=== PATIENT | female | born 1970 | race Caucasian/White ===

== ENCOUNTER 2017-08-03 10:08 | Day surgery (SDC) | payer OTHER ==
[~2017-08-03 10:08] MED LIST: AMOX500 PO; ATEN25 PO; BUSP10 PO; Bactrim Ds Tab1 EACH PO; CEPH500 PO; Citalopram HBr40 MG PO; Cleocin HCl300 MG PO; DESV50 PO; FAMO40 PO; GABA300 PO; HYDACE5 PO; HYDCHL50; IBUP600 PO; LEVSOD50; METF500C PO; Norco 5-325 Ta1 EACH PO; OXYC5; Omeprazole20 M1 PO; SULTRIDS PO; VENL75ER PO; Vitamin D2000 UNIT PO; ZESTORETIC 20-1 EAC1 PO; [UNRECOGNIZED DRUG - OTHER]
== END 2017-08-03 23:29 | disposition home or self-care (01) ==
LOC: WOUND 10:08
DX: Z48.00 Encounter for change or removal of nonsurgical wound dressing (principal); T81.31XA Disruption of external operation (surgical) wound, not elsewhere classified, initial encounter; K42.0 Umbilical hernia with obstruction, without gangrene; E66.01 Morbid (severe) obesity due to excess calories; Z87.891 Personal history of nicotine dependence
CPT/HCPCS: G0463

== ENCOUNTER 2017-08-31 10:13 | Day surgery (SDC) | payer OTHER | END 2017-08-31 11:53 | disposition home or self-care (01) | LOC: WOUND 10:13 | DX: Z48.00 Encounter for change or removal of nonsurgical wound dressing (principal); T81.31XA Disruption of external operation (surgical) wound, not elsewhere classified, initial encounter; E66.01 Morbid (severe) obesity due to excess calories; K42.0 Umbilical hernia with obstruction, without gangrene | CPT/HCPCS: G0463 ==

== ENCOUNTER 2017-09-07 10:20 | Day surgery (SDC) | payer OTHER | END 2017-09-07 11:56 | disposition home or self-care (01) | LOC: WOUND 10:20 | PROC: 0HB7XZZ Excision of Abdomen Skin, External Approach (ICD-10-PCS; principal; 2017-09-07) | DX: Z48.00 Encounter for change or removal of nonsurgical wound dressing (principal); T81.31XA Disruption of external operation (surgical) wound, not elsewhere classified, initial encounter; K42.0 Umbilical hernia with obstruction, without gangrene; E66.01 Morbid (severe) obesity due to excess calories; L57.0 Actinic keratosis; Z87.891 Personal history of nicotine dependence | CPT/HCPCS: G0463 ==

== ENCOUNTER 2017-09-14 10:20 | Day surgery (SDC) | payer OTHER | END 2017-09-14 11:04 | disposition home or self-care (01) | LOC: WOUND 10:20 | DX: Z48.00 Encounter for change or removal of nonsurgical wound dressing (principal); T81.31XA Disruption of external operation (surgical) wound, not elsewhere classified, initial encounter; K42.0 Umbilical hernia with obstruction, without gangrene; E66.01 Morbid (severe) obesity due to excess calories | CPT/HCPCS: G0463 ==

== ENCOUNTER 2017-09-22 14:00 | Day surgery (SDC) | payer OTHER | END 2017-09-22 16:15 | disposition home or self-care (01) | LOC: WOUND 14:00 | PROC: 2W03X6Z Change Pressure Dressing on Abdominal Wall (ICD-10-PCS; principal; 2017-09-22) | DX: Z48.00 Encounter for change or removal of nonsurgical wound dressing (principal); T81.31XA Disruption of external operation (surgical) wound, not elsewhere classified, initial encounter; E11.622 Type 2 diabetes mellitus with other skin ulcer; L98.492 Non-pressure chronic ulcer of skin of other sites with fat layer exposed; K42.0 Umbilical hernia with obstruction, without gangrene; E66.01 Morbid (severe) obesity due to excess calories | CPT/HCPCS: G0463 ==

== ENCOUNTER 2017-09-26 00:04 | Day surgery (SDC) | payer OTHER | END 2017-09-26 13:11 | disposition home or self-care (01) | LOC: WOUND 00:04 | DX: Z48.00 Encounter for change or removal of nonsurgical wound dressing (principal); T81.31XA Disruption of external operation (surgical) wound, not elsewhere classified, initial encounter; E66.01 Morbid (severe) obesity due to excess calories; K42.0 Umbilical hernia with obstruction, without gangrene | CPT/HCPCS: 87070; 87075; 87076; 87185; 87205; G0463 ==

== ENCOUNTER 2017-09-27 12:49 | Day surgery (SDC) | payer OTHER | END 2017-09-27 14:22 | disposition home or self-care (01) | LOC: WOUND 12:49 | DX: Z48.00 Encounter for change or removal of nonsurgical wound dressing (principal); T81.31XA Disruption of external operation (surgical) wound, not elsewhere classified, initial encounter; E66.01 Morbid (severe) obesity due to excess calories; K42.0 Umbilical hernia with obstruction, without gangrene | CPT/HCPCS: G0463 ==

== ENCOUNTER 2017-09-29 13:47 | Day surgery (SDC) | payer OTHER | END 2017-09-29 15:57 | disposition home or self-care (01) | LOC: WOUND 13:47 | PROC: 2W13X6Z Compression of Abdominal Wall using Pressure Dressing (ICD-10-PCS; principal; 2017-09-29) | DX: Z48.00 Encounter for change or removal of nonsurgical wound dressing (principal); T81.31XA Disruption of external operation (surgical) wound, not elsewhere classified, initial encounter; E66.01 Morbid (severe) obesity due to excess calories; K42.0 Umbilical hernia with obstruction, without gangrene | CPT/HCPCS: G0463 ==

== ENCOUNTER 2017-10-03 00:05 | Day surgery (SDC) | payer OTHER | END 2017-10-03 14:26 | disposition home or self-care (01) | LOC: WOUND 00:05 | PROC: 2W13X6Z Compression of Abdominal Wall using Pressure Dressing (ICD-10-PCS; principal; 2017-10-03) | DX: Z48.00 Encounter for change or removal of nonsurgical wound dressing (principal); T81.31XA Disruption of external operation (surgical) wound, not elsewhere classified, initial encounter; E66.01 Morbid (severe) obesity due to excess calories; K42.0 Umbilical hernia with obstruction, without gangrene ==

== ENCOUNTER 2017-10-06 00:57 | Day surgery (SDC) | payer OTHER | END 2017-10-06 22:54 | disposition home or self-care (01) | LOC: WOUND 00:57 | DX: Z48.00 Encounter for change or removal of nonsurgical wound dressing (principal); T81.31XA Disruption of external operation (surgical) wound, not elsewhere classified, initial encounter; E66.01 Morbid (severe) obesity due to excess calories; K42.0 Umbilical hernia with obstruction, without gangrene | CPT/HCPCS: G0463 ==

== ENCOUNTER 2017-10-10 00:24 | Day surgery (SDC) | payer OTHER | END 2017-10-10 22:58 | disposition home or self-care (01) | LOC: WOUND 00:24 | PROC: 2W13X6Z Compression of Abdominal Wall using Pressure Dressing (ICD-10-PCS; principal; 2017-10-10) | DX: Z48.00 Encounter for change or removal of nonsurgical wound dressing (principal); T81.31XA Disruption of external operation (surgical) wound, not elsewhere classified, initial encounter; E66.01 Morbid (severe) obesity due to excess calories; K42.0 Umbilical hernia with obstruction, without gangrene ==

== ENCOUNTER 2017-10-12 00:09 | Day surgery (SDC) | payer OTHER | END 2017-10-12 13:01 | disposition home or self-care (01) | LOC: WOUND 00:09 | DX: Z48.00 Encounter for change or removal of nonsurgical wound dressing (principal); T81.31XA Disruption of external operation (surgical) wound, not elsewhere classified, initial encounter; E66.01 Morbid (severe) obesity due to excess calories; K42.0 Umbilical hernia with obstruction, without gangrene ==

== ENCOUNTER 2017-10-14 12:27 | Day surgery (SDC) | payer OTHER | END 2017-10-14 16:00 | disposition home or self-care (01) | LOC: WOUND 12:27 | PROC: 2W13X6Z Compression of Abdominal Wall using Pressure Dressing (ICD-10-PCS; principal; 2017-10-14) | DX: Z48.00 Encounter for change or removal of nonsurgical wound dressing (principal); T81.31XA Disruption of external operation (surgical) wound, not elsewhere classified, initial encounter; E66.01 Morbid (severe) obesity due to excess calories; K42.0 Umbilical hernia with obstruction, without gangrene; Z87.891 Personal history of nicotine dependence ==

== ENCOUNTER 2017-10-17 00:19 | Day surgery (SDC) | payer OTHER | END 2017-10-17 14:34 | disposition home or self-care (01) | LOC: WOUND 00:19 | PROC: 2W13X6Z Compression of Abdominal Wall using Pressure Dressing (ICD-10-PCS; principal; 2017-10-17) | DX: Z48.01 Encounter for change or removal of surgical wound dressing (principal); T81.31XA Disruption of external operation (surgical) wound, not elsewhere classified, initial encounter; E66.01 Morbid (severe) obesity due to excess calories; K42.0 Umbilical hernia with obstruction, without gangrene ==

== ENCOUNTER 2017-10-19 12:36 | Day surgery (SDC) | payer OTHER | END 2017-10-19 13:40 | disposition home or self-care (01) | LOC: WOUND 12:36 | PROC: 2W13X6Z Compression of Abdominal Wall using Pressure Dressing (ICD-10-PCS; principal; 2017-10-19) | DX: Z48.01 Encounter for change or removal of surgical wound dressing (principal); E66.01 Morbid (severe) obesity due to excess calories; K42.0 Umbilical hernia with obstruction, without gangrene ==

== ENCOUNTER 2017-10-21 00:38 | Day surgery (SDC) | payer OTHER ==
[~2017-10-21 00:38] MED LIST changes: +LISHYD1012 PO; -ZESTORETIC 20-1 EAC1 PO
== END 2017-10-21 22:00 | disposition home or self-care (01) ==
LOC: WOUND 00:38
DX: Z48.01 Encounter for change or removal of surgical wound dressing (principal); T81.31XA Disruption of external operation (surgical) wound, not elsewhere classified, initial encounter; E66.01 Morbid (severe) obesity due to excess calories; K42.0 Umbilical hernia with obstruction, without gangrene
CPT/HCPCS: G0463

== ENCOUNTER 2017-10-24 00:06 | Day surgery (SDC) | payer OTHER ==
[~2017-10-24 00:06] MED LIST changes: -LISHYD1012 PO; +ZESTORETIC 20-1 EAC1 PO
== END 2017-10-24 13:59 | disposition home or self-care (01) ==
LOC: WOUND 00:06
PROC: 2W13X6Z Compression of Abdominal Wall using Pressure Dressing (ICD-10-PCS; principal; 2017-10-24)
PROC: 0HB7XZZ Excision of Abdomen Skin, External Approach (ICD-10-PCS; principal; 2017-10-24)
DX: Z48.01 Encounter for change or removal of surgical wound dressing (principal); T81.31XA Disruption of external operation (surgical) wound, not elsewhere classified, initial encounter; E66.01 Morbid (severe) obesity due to excess calories; K42.0 Umbilical hernia with obstruction, without gangrene
CPT/HCPCS: G0463

== ENCOUNTER 2017-10-26 00:14 | Day surgery (SDC) | payer OTHER | END 2017-10-26 22:57 | disposition home or self-care (01) | LOC: WOUND 00:14 | PROC: 2W13X6Z Compression of Abdominal Wall using Pressure Dressing (ICD-10-PCS; principal; 2017-10-26) | DX: Z48.01 Encounter for change or removal of surgical wound dressing (principal); T81.31XA Disruption of external operation (surgical) wound, not elsewhere classified, initial encounter; E66.01 Morbid (severe) obesity due to excess calories; K42.0 Umbilical hernia with obstruction, without gangrene ==

== ENCOUNTER 2017-10-28 00:47 | Day surgery (SDC) | payer OTHER | END 2017-10-28 23:28 | disposition home or self-care (01) | LOC: WOUND 00:47 | PROC: 2W13X6Z Compression of Abdominal Wall using Pressure Dressing (ICD-10-PCS; principal; 2017-10-28) | DX: Z48.01 Encounter for change or removal of surgical wound dressing (principal); T81.31XA Disruption of external operation (surgical) wound, not elsewhere classified, initial encounter; E66.01 Morbid (severe) obesity due to excess calories; K42.0 Umbilical hernia with obstruction, without gangrene ==

== ENCOUNTER 2017-10-31 00:18 | Day surgery (SDC) | payer OTHER | END 2017-10-31 13:16 | disposition home or self-care (01) | LOC: WOUND 00:18 | PROC: 2W13X6Z Compression of Abdominal Wall using Pressure Dressing (ICD-10-PCS; principal; 2017-10-31) | DX: T81.31XA Disruption of external operation (surgical) wound, not elsewhere classified, initial encounter (principal); E66.01 Morbid (severe) obesity due to excess calories; K42.0 Umbilical hernia with obstruction, without gangrene | CPT/HCPCS: G0463 ==

== ENCOUNTER 2017-11-02 09:25 | Day surgery (SDC) | payer OTHER | END 2017-11-02 22:39 | disposition home or self-care (01) | LOC: WOUND 09:25 | PROC: 2W13X6Z Compression of Abdominal Wall using Pressure Dressing (ICD-10-PCS; principal; 2017-11-02) | DX: T81.31XA Disruption of external operation (surgical) wound, not elsewhere classified, initial encounter (principal); E66.01 Morbid (severe) obesity due to excess calories; K42.0 Umbilical hernia with obstruction, without gangrene ==

== ENCOUNTER 2017-11-04 00:10 | Day surgery (SDC) | payer OTHER | END 2017-11-04 23:10 | disposition home or self-care (01) | LOC: WOUND 00:10 | PROC: 2W13X6Z Compression of Abdominal Wall using Pressure Dressing (ICD-10-PCS; principal; 2017-11-04) | DX: T81.31XA Disruption of external operation (surgical) wound, not elsewhere classified, initial encounter (principal); E66.01 Morbid (severe) obesity due to excess calories; K42.0 Umbilical hernia with obstruction, without gangrene; Z87.891 Personal history of nicotine dependence ==

== ENCOUNTER 2017-11-07 12:33 | Day surgery (SDC) | payer OTHER | END 2017-11-07 23:00 | disposition home or self-care (01) | LOC: WOUND 12:33 | PROC: 0HB7XZZ Excision of Abdomen Skin, External Approach (ICD-10-PCS; principal; 2017-11-07) | DX: T81.31XA Disruption of external operation (surgical) wound, not elsewhere classified, initial encounter (principal); E66.01 Morbid (severe) obesity due to excess calories; K42.0 Umbilical hernia with obstruction, without gangrene | CPT/HCPCS: G0463 ==

== ENCOUNTER 2017-11-09 00:12 | Day surgery (SDC) | payer OTHER | END 2017-11-09 22:57 | disposition home or self-care (01) | LOC: WOUND 00:12 | PROC: 2W13X6Z Compression of Abdominal Wall using Pressure Dressing (ICD-10-PCS; principal; 2017-11-09) | DX: T81.31XA Disruption of external operation (surgical) wound, not elsewhere classified, initial encounter (principal); E66.01 Morbid (severe) obesity due to excess calories; K42.0 Umbilical hernia with obstruction, without gangrene ==

== ENCOUNTER 2017-11-11 12:30 | Day surgery (SDC) | payer OTHER | END 2017-11-11 23:00 | disposition home or self-care (01) | LOC: WOUND 12:30 | PROC: 2W13X6Z Compression of Abdominal Wall using Pressure Dressing (ICD-10-PCS; principal; 2017-11-11) | DX: T81.31XA Disruption of external operation (surgical) wound, not elsewhere classified, initial encounter (principal); E66.01 Morbid (severe) obesity due to excess calories; K42.0 Umbilical hernia with obstruction, without gangrene ==

== ENCOUNTER 2017-11-14 13:34 | Day surgery (SDC) | payer OTHER | END 2017-11-14 23:28 | disposition home or self-care (01) | LOC: WOUND 13:34 | PROC: 0HB7XZZ Excision of Abdomen Skin, External Approach (ICD-10-PCS; principal; 2017-11-14) | DX: Z48.01 Encounter for change or removal of surgical wound dressing (principal); T81.31XA Disruption of external operation (surgical) wound, not elsewhere classified, initial encounter; E66.01 Morbid (severe) obesity due to excess calories; K43.2 Incisional hernia without obstruction or gangrene; Z87.891 Personal history of nicotine dependence | CPT/HCPCS: G0463 ==

== ENCOUNTER 2017-11-16 12:08 | Day surgery (SDC) | payer OTHER | END 2017-11-16 16:50 | disposition home or self-care (01) | LOC: WOUND 12:08 | PROC: 2W13X6Z Compression of Abdominal Wall using Pressure Dressing (ICD-10-PCS; principal; 2017-11-16) | DX: T81.31XA Disruption of external operation (surgical) wound, not elsewhere classified, initial encounter (principal); E66.01 Morbid (severe) obesity due to excess calories; K42.0 Umbilical hernia with obstruction, without gangrene ==

== ENCOUNTER 2017-11-18 12:14 | Day surgery (SDC) | payer OTHER | END 2017-11-18 16:59 | disposition home or self-care (01) | LOC: WOUND 12:14 | PROC: 2W13X6Z Compression of Abdominal Wall using Pressure Dressing (ICD-10-PCS; principal; 2017-11-18) | DX: T81.31XA Disruption of external operation (surgical) wound, not elsewhere classified, initial encounter (principal); E66.01 Morbid (severe) obesity due to excess calories; K42.0 Umbilical hernia with obstruction, without gangrene ==

== ENCOUNTER 2017-11-21 14:08 | Day surgery (SDC) | payer OTHER | END 2017-11-21 16:54 | disposition home or self-care (01) | LOC: WOUND 14:08 | PROC: 0HB7XZZ Excision of Abdomen Skin, External Approach (ICD-10-PCS; principal; 2017-11-21) | DX: T81.31XA Disruption of external operation (surgical) wound, not elsewhere classified, initial encounter (principal); E66.01 Morbid (severe) obesity due to excess calories; K42.0 Umbilical hernia with obstruction, without gangrene ==

== ENCOUNTER 2017-11-25 00:25 | Day surgery (SDC) | payer OTHER | END 2017-11-25 15:58 | disposition home or self-care (01) | LOC: WOUND 00:25 | PROC: 2W03X6Z Change Pressure Dressing on Abdominal Wall (ICD-10-PCS; principal; 2017-11-25) | DX: Z48.01 Encounter for change or removal of surgical wound dressing (principal); T81.31XA Disruption of external operation (surgical) wound, not elsewhere classified, initial encounter; K43.9 Ventral hernia without obstruction or gangrene; E66.01 Morbid (severe) obesity due to excess calories; Z87.891 Personal history of nicotine dependence ==

== ENCOUNTER 2017-11-28 10:12 | Day surgery (SDC) | payer OTHER | END 2017-11-28 23:09 | disposition home or self-care (01) | LOC: WOUND 10:12 | PROC: 2W03X6Z Change Pressure Dressing on Abdominal Wall (ICD-10-PCS; principal; 2017-11-28) | DX: Z48.01 Encounter for change or removal of surgical wound dressing (principal); T81.31XA Disruption of external operation (surgical) wound, not elsewhere classified, initial encounter; K43.9 Ventral hernia without obstruction or gangrene; E66.01 Morbid (severe) obesity due to excess calories ==

== ENCOUNTER 2017-12-01 00:49 | Day surgery (SDC) | payer OTHER ==
[~2017-12-01 00:49] MED LIST changes: +LISHYD1012 PO; -ZESTORETIC 20-1 EAC1 PO
== END 2017-12-01 22:58 | disposition home or self-care (01) ==
LOC: WOUND 00:49
PROC: 0HB7XZZ Excision of Abdomen Skin, External Approach (ICD-10-PCS; principal; 2017-12-01)
DX: T81.31XA Disruption of external operation (surgical) wound, not elsewhere classified, initial encounter (principal); E66.01 Morbid (severe) obesity due to excess calories; K42.0 Umbilical hernia with obstruction, without gangrene
CPT/HCPCS: G0463

== ENCOUNTER 2017-12-06 15:00 | Day surgery (SDC) | payer OTHER | END 2017-12-06 22:50 | disposition home or self-care (01) | LOC: WOUND 15:00 | PROC: 2W13X6Z Compression of Abdominal Wall using Pressure Dressing (ICD-10-PCS; principal; 2017-12-06) | DX: T81.31XA Disruption of external operation (surgical) wound, not elsewhere classified, initial encounter (principal); E66.01 Morbid (severe) obesity due to excess calories; K42.0 Umbilical hernia with obstruction, without gangrene ==

== ENCOUNTER 2017-12-09 10:43 | Day surgery (SDC) | payer OTHER | END 2017-12-09 12:29 | disposition home or self-care (01) | LOC: WOUND 10:43 | PROC: 2W13X6Z Compression of Abdominal Wall using Pressure Dressing (ICD-10-PCS; principal; 2017-12-09) | DX: Z48.01 Encounter for change or removal of surgical wound dressing (principal); T81.31XA Disruption of external operation (surgical) wound, not elsewhere classified, initial encounter; E66.01 Morbid (severe) obesity due to excess calories; K42.0 Umbilical hernia with obstruction, without gangrene ==

== ENCOUNTER 2017-12-12 14:00 | Day surgery (SDC) | payer OTHER | END 2017-12-12 16:29 | disposition home or self-care (01) | LOC: WOUND 14:00 | PROC: 0HB7XZZ Excision of Abdomen Skin, External Approach (ICD-10-PCS; principal; 2017-12-12) | DX: T81.31XA Disruption of external operation (surgical) wound, not elsewhere classified, initial encounter (principal); E66.01 Morbid (severe) obesity due to excess calories; K42.0 Umbilical hernia with obstruction, without gangrene ==

== ENCOUNTER 2017-12-15 09:16 | Day surgery (SDC) | payer OTHER | END 2017-12-15 22:46 | disposition home or self-care (01) | LOC: WOUND 09:16 | PROC: 2W13X6Z Compression of Abdominal Wall using Pressure Dressing (ICD-10-PCS; principal; 2017-12-15) | DX: T81.31XA Disruption of external operation (surgical) wound, not elsewhere classified, initial encounter (principal); E66.01 Morbid (severe) obesity due to excess calories; K42.0 Umbilical hernia with obstruction, without gangrene ==

== ENCOUNTER 2017-12-22 00:17 | Day surgery (SDC) | payer OTHER | END 2017-12-22 22:48 | disposition home or self-care (01) | LOC: WOUND 00:17 | PROC: 2W13X6Z Compression of Abdominal Wall using Pressure Dressing (ICD-10-PCS; principal; 2017-12-22) | DX: T81.31XA Disruption of external operation (surgical) wound, not elsewhere classified, initial encounter (principal); E66.01 Morbid (severe) obesity due to excess calories; K42.0 Umbilical hernia with obstruction, without gangrene ==

== ENCOUNTER 2017-12-26 14:59 | Day surgery (SDC) | payer OTHER | END 2017-12-26 23:21 | disposition home or self-care (01) | LOC: WOUND 14:59 | PROC: 2W13X6Z Compression of Abdominal Wall using Pressure Dressing (ICD-10-PCS; principal; 2017-12-26) | PROC: 0HB7XZZ Excision of Abdomen Skin, External Approach (ICD-10-PCS; principal; 2017-12-26) | DX: T81.31XA Disruption of external operation (surgical) wound, not elsewhere classified, initial encounter (principal); E66.01 Morbid (severe) obesity due to excess calories; K42.0 Umbilical hernia with obstruction, without gangrene ==

== ENCOUNTER 2017-12-29 10:49 | Day surgery (SDC) | payer OTHER | END 2017-12-29 15:46 | disposition home or self-care (01) | LOC: WOUND 10:49 | PROC: 2W13X6Z Compression of Abdominal Wall using Pressure Dressing (ICD-10-PCS; principal; 2017-12-29) | DX: T81.31XA Disruption of external operation (surgical) wound, not elsewhere classified, initial encounter (principal); E66.01 Morbid (severe) obesity due to excess calories; K42.0 Umbilical hernia with obstruction, without gangrene ==

== ENCOUNTER 2018-01-02 14:43 | Day surgery (SDC) | payer OTHER | END 2018-01-02 16:17 | disposition home or self-care (01) | LOC: WOUND 14:43 | PROC: 0HB7XZZ Excision of Abdomen Skin, External Approach (ICD-10-PCS; principal; 2018-01-02) | DX: T81.31XA Disruption of external operation (surgical) wound, not elsewhere classified, initial encounter (principal); E66.01 Morbid (severe) obesity due to excess calories; K42.0 Umbilical hernia with obstruction, without gangrene ==

== ENCOUNTER 2018-01-09 14:28 | Day surgery (SDC) | payer OTHER ==
[~2018-01-09 14:28] MED LIST changes: -LISHYD1012 PO; +ZESTORETIC 20-1 EAC1 PO
== END 2018-01-09 22:49 | disposition home or self-care (01) ==
LOC: WOUND 14:28
PROC: 0HB7XZZ Excision of Abdomen Skin, External Approach (ICD-10-PCS; principal; 2018-01-09)
DX: T81.31XA Disruption of external operation (surgical) wound, not elsewhere classified, initial encounter (principal); E66.01 Morbid (severe) obesity due to excess calories; K42.0 Umbilical hernia with obstruction, without gangrene

== ENCOUNTER 2018-01-11 00:45 | Day surgery (SDC) | payer OTHER ==
[2018-01-11] MEDS ORDERED: IBUP600 PO (14:24)
== END 2018-01-11 14:06 | disposition home or self-care (01) ==
LOC: ATC 00:45
DX: Z48.01 Encounter for change or removal of surgical wound dressing (principal); T81.31XA Disruption of external operation (surgical) wound, not elsewhere classified, initial encounter; E66.01 Morbid (severe) obesity due to excess calories; K42.0 Umbilical hernia with obstruction, without gangrene; E66.9 Obesity, unspecified; Z87.891 Personal history of nicotine dependence
CPT/HCPCS: 99213

== ENCOUNTER 2018-01-13 02:13 | Day surgery (SDC) | payer OTHER | END 2018-01-13 14:04 | disposition home or self-care (01) | LOC: ATC 02:13 | DX: T81.31XA Disruption of external operation (surgical) wound, not elsewhere classified, initial encounter (principal); E66.01 Morbid (severe) obesity due to excess calories; K42.0 Umbilical hernia with obstruction, without gangrene | CPT/HCPCS: 99211 ==

== ENCOUNTER 2018-01-16 09:23 | Day surgery (SDC) | payer OTHER | END 2018-01-16 23:00 | disposition home or self-care (01) | LOC: WOUND 09:23 | PROC: 0HB7XZZ Excision of Abdomen Skin, External Approach (ICD-10-PCS; principal; 2018-01-16) | DX: T81.31XA Disruption of external operation (surgical) wound, not elsewhere classified, initial encounter (principal); E66.01 Morbid (severe) obesity due to excess calories; K42.0 Umbilical hernia with obstruction, without gangrene ==

== ENCOUNTER 2018-01-18 00:02 | Day surgery (SDC) | payer OTHER | END 2018-01-18 15:13 | disposition home or self-care (01) | LOC: ATC 00:02 | PROC: 0HB7XZZ Excision of Abdomen Skin, External Approach (ICD-10-PCS; principal; 2018-01-18) | DX: T81.4XXA Infection following a procedure, initial encounter (principal); T81.31XA Disruption of external operation (surgical) wound, not elsewhere classified, initial encounter; E66.01 Morbid (severe) obesity due to excess calories; K42.0 Umbilical hernia with obstruction, without gangrene; L02.211 Cutaneous abscess of abdominal wall | CPT/HCPCS: 99212 ==

== ENCOUNTER 2018-01-20 00:13 | Day surgery (SDC) | payer OTHER | END 2018-01-20 13:50 | disposition home or self-care (01) | LOC: ATC 00:13 | DX: T81.31XA Disruption of external operation (surgical) wound, not elsewhere classified, initial encounter (principal); L02.211 Cutaneous abscess of abdominal wall; E66.01 Morbid (severe) obesity due to excess calories; K42.0 Umbilical hernia with obstruction, without gangrene | CPT/HCPCS: 99211 ==

== ENCOUNTER 2018-01-23 15:00 | Day surgery (SDC) | payer OTHER | END 2018-01-23 22:39 | disposition home or self-care (01) | LOC: WOUND 15:00 | PROC: 2W13X6Z Compression of Abdominal Wall using Pressure Dressing (ICD-10-PCS; principal; 2018-01-23) | DX: T81.31XA Disruption of external operation (surgical) wound, not elsewhere classified, initial encounter (principal); E66.01 Morbid (severe) obesity due to excess calories; K42.0 Umbilical hernia with obstruction, without gangrene ==

== ENCOUNTER 2018-01-25 00:33 | Day surgery (SDC) | payer OTHER | END 2018-01-25 15:15 | disposition home or self-care (01) | LOC: ATC 00:33 | DX: T81.31XA Disruption of external operation (surgical) wound, not elsewhere classified, initial encounter (principal); E66.01 Morbid (severe) obesity due to excess calories; K42.0 Umbilical hernia with obstruction, without gangrene | CPT/HCPCS: 99211 ==

== ENCOUNTER 2018-01-27 00:13 | Day surgery (SDC) | payer OTHER | END 2018-01-27 15:10 | disposition home or self-care (01) | LOC: ATC 00:13 | DX: T81.31XA Disruption of external operation (surgical) wound, not elsewhere classified, initial encounter (principal); E66.01 Morbid (severe) obesity due to excess calories; K42.0 Umbilical hernia with obstruction, without gangrene | CPT/HCPCS: 99212 ==

== ENCOUNTER 2018-01-30 00:08 | Day surgery (SDC) | END 2018-01-30 22:38 | disposition home or self-care (01) ==

== ENCOUNTER 2018-02-01 00:07 | Day surgery (SDC) | payer OTHER | END 2018-02-01 13:45 | disposition home or self-care (01) | LOC: ATC 00:07 | DX: T81.31XA Disruption of external operation (surgical) wound, not elsewhere classified, initial encounter (principal); L02.211 Cutaneous abscess of abdominal wall; E66.01 Morbid (severe) obesity due to excess calories; K42.0 Umbilical hernia with obstruction, without gangrene | CPT/HCPCS: 99211 ==

== ENCOUNTER 2018-02-06 15:00 | Day surgery (SDC) | payer OTHER | END 2018-02-06 16:39 | disposition home or self-care (01) | LOC: WOUND | DX: Z48.01 Encounter for change or removal of surgical wound dressing (principal); T81.31XA Disruption of external operation (surgical) wound, not elsewhere classified, initial encounter; E66.01 Morbid (severe) obesity due to excess calories; K42.0 Umbilical hernia with obstruction, without gangrene | CPT/HCPCS: G0463 ==

== ENCOUNTER 2018-02-16 13:15 | Day surgery (SDC) | payer OTHER | END 2018-02-16 15:47 | disposition home or self-care (01) | LOC: WOUND 13:15 | PROC: 0HB7XZZ Excision of Abdomen Skin, External Approach (ICD-10-PCS; principal; 2018-02-16) | DX: T81.31XA Disruption of external operation (surgical) wound, not elsewhere classified, initial encounter (principal); E66.01 Morbid (severe) obesity due to excess calories; K42.0 Umbilical hernia with obstruction, without gangrene | CPT/HCPCS: G0463 ==

== ENCOUNTER 2018-02-24 13:15 | Day surgery (SDC) | payer OTHER | END 2018-02-24 15:18 | disposition home or self-care (01) | LOC: WOUND 13:15 | DX: Z48.01 Encounter for change or removal of surgical wound dressing (principal); T81.31XA Disruption of external operation (surgical) wound, not elsewhere classified, initial encounter; E66.01 Morbid (severe) obesity due to excess calories; K42.0 Umbilical hernia with obstruction, without gangrene | CPT/HCPCS: G0463 ==

== ENCOUNTER 2018-03-10 08:48 | Day surgery (SDC) | payer OTHER | END 2018-03-10 09:28 | disposition home or self-care (01) | LOC: WOUND 08:48 | DX: Z48.01 Encounter for change or removal of surgical wound dressing (principal); T81.31XA Disruption of external operation (surgical) wound, not elsewhere classified, initial encounter; E66.01 Morbid (severe) obesity due to excess calories; K42.0 Umbilical hernia with obstruction, without gangrene | CPT/HCPCS: G0463 ==

== ENCOUNTER → 2023-09-08 | Outpatient (CLI) | payer OTHER ==
[2023-09-08 14:27] LABS: BASOPHILS ABSOLUTE AUTO 0.05 K/mm3 (0.00-0.23); BASOPHILS PERCENT AUTO 1 % (0-2); EOSINOPHILS PERCENT AUTO 2 % (0-6); Hematocrit 44.8 % (33.0-51.0); Hemoglobin 15.3 g/dL (11.5-16.0); IMMATURE GRAN ABSOLUTE AUTO 0.04 K/mm3 (0.00-0.10); IMMATURE GRAN PERCENT AUTO 0 % (0-1); LYMPHOCYTES ABSOLUTE AUTO 3.68 K/mm3 (0.84-5.20); LYMPHOCYTES PERCENT AUTO 34 % (21-46); MONOCYTES ABSOLUTE AUTO 0.96 K/mm3 (0.16-1.47); MONOCYTES PERCENT AUTO 9 % (4-13); Mean Corpuscular HGB 29.6 pg (26.0-34.0); Mean Corpuscular HGB Conc 34.2 g/dL (31.5-36.5); Mean Corpuscular Volume 87 fL (80-100); Mean Platelet Volume 11.4 fL (9.1-12.4); NEUTROPHILS ABSOLUTE AUTO 5.84 K/mm3 (1.96-9.15); NEUTROPHILS PERCENT AUTO 54 % (41-73); Platelet Count 276 K/mm3 (150-400); RDW Coefficient Variation 13.1 % (11.7-14.2); RDW Standard Deviation 41.1 fL (35.1-46.3); Red Blood Cell Count 5.17 M/mm3 (3.80-5.20); White Blood Cell Count 10.77 K/mm3 (4.00-11.30)
[2023-09-08 14:51] LABS: Alanine Aminotransfer (ALT/SGP 51 U/L (12-78); Albumin, Blood 3.4 g/dL (3.4-5.0); Albumin/Globulin Ratio 1.1 (0.8-1.8); Alk Phos 95 U/L (50-136); Anion Gap 8 mmol/L (6-16); Aspartate Aminotrans (AST/SGOT 22 U/L (12-37); Bilirubin, Total 0.3 mg/dL (0.1-1.0); Blood Urea Nitrogen 10 mg/dL (8-24); Bun/Creatinine Ratio 15.5 (12.0-20.0); CHOL/HDL RATIO 3.9; CO2, Blood 27 mmol/L (21-32); Calcium, Blood 9.2 mg/dL (8.5-10.1); Chloride, Blood 105 mmol/L (98-108); Cholesterol 180 mg/dL (50-200); Creatinine, Blood 0.65 mg/dL (0.40-1.00); Globulin, Blood 3.2 g/dL (2.2-4.0); Glomerular Filtration Rate 107 (60-); Glucose, Blood 95 mg/dL (70-99); HDL Cholesterol 46 mg/dL (>39); LDL/HDL RATIO 2.2; Low Density Lipoprotein Chol 100 mg/dL (0-110); Potassium, Blood 3.9 mmol/L (3.5-5.5); Sodium, Blood 140 mmol/L (136-145); Total Protein, Blood 6.6 g/dL (6.4-8.2); Triglycerides 169 mg/dL (30-160); Very Low Density Lipoprot Chol 33 mg/dL (6-32)
== END | disposition home or self-care (01) ==
LOC: LAB SHORT 10:00 → LAB 10:00
PROVIDERS: Nurse Practitioner Family
DX: E78.5 Hyperlipidemia, unspecified (principal); E55.9 Vitamin D deficiency, unspecified; I10 Essential (primary) hypertension; F32.A Depression, unspecified
CPT/HCPCS: 80053; 80061; 82306; 84443; 85025

== ENCOUNTER 2024-04-23 05:48 | Observation (INO) | payer OTHER ==
[~2024-04-23] VITALS: Ht 165.1 cm; Wt 143.1 kg
[2024-04-23] VITALS (18 sets, daily range): BP systolic 114–153; BP diastolic 73–100
[~2024-04-23 05:48] MED LIST changes: +ALBU90OI; +ATORVASTATIN CA20 MG PO; +FLUTICASONE-SA1 EAC1; +HYDR1TAB94 PO; +METFORMIN HCL500 M3 PO; +SIME80CH; +Vitamin D1000 UNI1 PO; +ZANAFLEX413 PO
[2024-04-23] MEDS ORDERED: Lactated Ringer's 1,000 ML IV SCH (06:20)
[2024-04-23] MEDS ORDERED: POTCHL20ER PO (06:31)
[2024-04-23] MEDS ORDERED: Clindamycin 900mg in D5W 50ML 50 ML IV SCH (07:10)
[2024-04-23] MEDS ORDERED: Midazolam HCl 1MG / ML 2ML Vial IV SCH (07:15)
[2024-04-23] MEDS ORDERED: propofoL 20 ML IV ONE (07:24)
[2024-04-23] MEDS ORDERED: Ropivacaine 0.5% HCL/PF 5 MG/ML 30ML Vial ONE (07:26)
[2024-04-23] MEDS ORDERED: propofoL 50 ML IV ONE (07:26)
[2024-04-23] MEDS ORDERED: Bupivacaine 0.75%/Dext 8.25% 2 ML Amp IT ONE (07:28)
[2024-04-23] MEDS ORDERED: Ondansetron HCl 2 MG / ML 2ML Vial ONE (07:58)
[2024-04-23] MEDS ORDERED: Dexamethasone Sod Phos 10 MG/ML 1ML VIAL ONE (07:59)
--- NOTE | 2024-04-23 10:48 | NUR ---
ARRIVAL PT ARRIVED TO UNIT VIA [facility]AL[facility] WITH SLIDE SHEET TO BED. PT [id number], ON ROOM AIR. DRESSING CDI. ABLE TO MOVE LEFT LEG. MINIMAL MOVEMENT IN RIGHT. DENIES ANY PAIN. TOLERATING CLEARS WELL. VOIDING USING BED ESTRADA AT THIS TIME.
[2024-04-23] MEDS ORDERED: HYDROcodone 5-APAP 325 TAB PO PRN (12:35)
[2024-04-23] MEDS ORDERED: Albuterol HFA200 ACT/6.7 GM INH INH PRN (12:45)
[2024-04-23] MEDS ORDERED: Acetaminophen 325 MG TABLET PO PRN (13:00)
[2024-04-23] MEDS ORDERED: Sennosides 8.6 MG Tab PO PRN (13:00)
[2024-04-23] MEDS ORDERED: Potassium Chloride 20 MEQ TabCR PO SCH (13:00)
[2024-04-23] MEDS ORDERED: Docusate Sodium 100 MG Cap PO PRN (13:00)
[2024-04-23] MEDS ORDERED: Ondansetron 4 MG TAB PO PRN (13:05)
[2024-04-23] MEDS ORDERED: Gabapentin 300 MG Cap PO SCH (14:00)
--- NOTE | 2024-04-23 15:31 | NUR ---
DISCHARGE PT LEFT VIA WHEELCAHIR. ALL BELONGINGS WITH . PRESCRIPTIONS SENT TO PHARMACY PRIOR TO SURGERY BY DR. TABARES. PT ABLE TO STAND AND TRANSFER TO BSC AND WHEELCHAIR WELL. FOLLOWING [facility] ORDERS. ALL INSTRUCTIONS GONE OVER WITH PATIENT. DENIED FURTHER QUESTIONS.
[2024-04-24] MEDS ORDERED: Enoxaparin 40 MG/0.4 ML SYR SC SCH (09:00)
[2024-04-24] MEDS ORDERED: Venlafaxine HCl 75 MG CapCR PO SCH (09:00)
== END 2024-04-23 15:33 | disposition home or self-care (01) ==
LOC: ORSCMMR 05:48 → ORD 07:30 → SURS 10:38 → ORSCMMR 12:58 → SURS 15:33
PROVIDERS: Podiatrist Foot & Ankle Surgery; ADMIT Internal Medicine
PROC: 0QSJ04Z Reposition Right Fibula with Internal Fixation Device, Open Approach (ICD-10-PCS; principal; 2024-04-23 07:30)
DX: S82.61XA Displaced fracture of lateral malleolus of right fibula, initial encounter for closed fracture (principal); S93.431A Sprain of tibiofibular ligament of right ankle, initial encounter; S93.421A Sprain of deltoid ligament of right ankle, initial encounter; E78.5 Hyperlipidemia, unspecified; I10 Essential (primary) hypertension; F32.A Depression, unspecified; F17.210 Nicotine dependence, cigarettes, uncomplicated; R73.03 Prediabetes; G89.29 Other chronic pain; Z88.0 Allergy status to penicillin; Z79.899 Other long term (current) drug therapy; Z79.84 Long term (current) use of oral hypoglycemic drugs; X58.XXXA Exposure to other specified factors, initial encounter
CPT/HCPCS: 82947; 84132; A9270; C1713; C1776; J1100; J2250; J2405; J2704; J2795; J7120